=== PATIENT | male | born 1940 | race Caucasian/White ===

== ENCOUNTER → 2017-04-01 | Day surgery (SDC) | payer MEDICARE, BC ==
[~2017-04-01] VITALS: Ht 188 cm; Wt 106.8 kg
[~2017-04-01] MED LIST: ATOR40TA16 PO; DILT120T PO; GLIP10TA6 PO; LACTATED RINGER'S 1000 ML INJ 1,000 ML ONE; LIDOCAINE HCL 1% PF 30 ML VIAL ONE; LISI-515 PO; METF500T PO; MIDAZOLAM HCL 2 MG/2 ML VIAL ONE; NORC5TAB PO; ONDANSETRON HCL 4 MG/2 ML VIAL IV PUSH ONE; PRED10 PO; PROPOFOL 200 MG/20 ML AMP IV ONE; SODIUM BICARBONATE 8.4% INJ 50 ML ONE; SODIUM CHLOR 0.9% 250 ML INJ 250 ML ONE; SODIUM CHLORIDE 0.9% INJ 50 ML ONE; VANCOMYCIN HCL 1000 MG VIAL ONE; XARE20TA PO; ceFAZolin INJ 1,000 MG VIAL ONE
[2017-04-01 10:56] VITALS: BP 142/69; PULSE 82; RESP 20; TEMP 97.4; O2SAT 93
[2017-04-01 11:14] LABS: AUTOMATED NEUTROPHIL # 10.7 TH/MM3 (1.8-7.7); BASOPHIL # 1.1 TH/MM3 (0-0.2); BASOPHIL % 6.7 % (0.0-2.0); EOSINOPHIL # 0.3 TH/MM3 (0-0.4); EOSINOPHIL % 1.7 % (0.0-4.0); HEMATOCRIT 44.2 % (39.0-51.0); LYMPH % 18.1 % (9.0-44.0); MEAN CORPUSCULAR HEMOGLOBIN 29.8 PG (27.0-34.0); MEAN CORPUSCULAR HGB CONC 32.4 % (32.0-36.0); MONO % 7.8 % (0.0-8.0); NEUT % 65.7 % (16.0-70.0); PLATELET COUNT 535 TH/MM3 (150-450); RED BLOOD COUNT 4.81 MIL/MM3 (4.50-5.90); RED CELL DISTRIBUTION WIDTH 12.3 % (11.6-17.2); WHITE BLOOD COUNT 16.4 TH/MM3 (4.0-11.0)
[2017-04-01 11:20] LABS: HEMO FLAGS AUTO DIFF
[2017-04-01 11:24] LABS: POTASSIUM 4.4 MEQ/L (3.5-5.1)
[2017-04-01 11:28] LABS: BICARBONATE 28.6 MEQ/L (21.0-32.0)
[2017-04-01 11:39] LABS: EOSINOPHILS 2 % (0-4); NEUTROPHIL # MANUAL DIFF 12.1 TH/MM3 (1.8-7.7); POLYS (SEG NEUTROPHILS) 74 % (16-70); SCAN/DIFF FINAL DIFF MANUAL; WBC DIFF SAMPLE 100
[2017-04-01] MEDS: LIDOCAINE 1%/EPINEPHrine 1:100,000 SOLN 30 ML VIAL ONE ×2 (12:09→13:17)
[2017-04-01 15:23] VITALS: BP 114/72; PULSE 71; RESP 16; TEMP 98.2; O2SAT 99
--- NOTE | 2017-04-02 15:49 | EKG ---
Date Performed: 04/01/2017 Time Performed: 11:13:50 PTAGE: 77 years EKG: Atrial fibrillation with PVC(s). Lateral T wave changes are nonspecific Low QRS voltages in limb leads Abnormal ECG NO PREVIOUS TRACING DOCTOR: Bryn Ferguson Interpretating Date/Time 04/02/2017 15:41:02
--- NOTE | 2017-04-02 22:05 | MP ---
cc: CUAUHTEMOC LIN M.D., OLIMPIO F. M.D. HERDEL, G. FREDERICK M.D. Corrected Copy: 04/19/17 DATE OF SURGERY: 04/01/2017. PREOPERATIVE DIAGNOSIS: Rule out temporal arteritis with headaches, dizziness and elevated SED rate. POSTOPERATIVE DIAGNOSIS: Rule out temporal arteritis with headaches, dizziness and elevated SED rate. OPERATIVE PROCEDURE PERFORMED: SURGEON: Cuauhtemoc Lin MD. ANESTHESIA: LMA. ESTIMATED BLOOD LOSS: Less than 10 mL. FLUIDS: 1000 mL crystalloid. COMPLICATIONS: None. DRAINS: None. SPECIMEN: Bilateral temporal artery biopsies to pathology. DESCRIPTION OF THE PROCEDURE IN DETAIL: The patient was taken to the operating room and placed on the operating table in the supine position. After an adequate level of laryngeal mask anesthesia was instituted, the sideburns were shaved and both preauricular regions were prepped and draped. Time-out was taken confirming the correct patient, site and procedures to be performed. The scalp was infiltrated with local anesthetic and a longitudinal incision made in the preauricular region. Dissection was directed with the Doppler probe and the temporal artery was identified. Adequate length was dissected out from the surrounding structures and the vessel was ligated with 4-0 silk sutures. The artery was sharply divided and placed into formalin. The wound was hemostatic and was closed in two layers with interrupted 3-0 Vicryl suture and 5-0 PDS in a running subcuticular fashion. The wound was dressed with quarter-inch Steri-Strips. Attention was turned to the right side. The skin was infiltrated with local anesthetic and a longitudinal incision was made in the preauricular region as well. Dissection was then carried down sharply to the right temporal artery and proximal and distal control was obtained with silk sutures. The artery was divided sharply and passed off the table. The specimen was placed into formalin. This side was hemostatic as well and was closed in two layers with interrupted 3-0 Vicryl suture and 5-0 PDS in a running subcuticular fashion. This wound was dressed with quarter-inch Steri-Strips as well. The patient was taken back to the recovery room in stable condition. Sponge, needle and instrument counts were reported be correct. The patient tolerated the procedure well. MD JAN Harding/DANYELL /9:50 PM /11:38 AM
== END | disposition home or self-care (01) ==
LOC: PHSDC 10:28
PROVIDERS: ATTEND Surgery Trauma Surgery
DX: R51 Headache (principal); I70.8 Atherosclerosis of other arteries; R42 Dizziness and giddiness; I10 Essential (primary) hypertension; E11.9 Type 2 diabetes mellitus without complications; C67.9 Malignant neoplasm of bladder, unspecified; Z95.1 Presence of aortocoronary bypass graft; Z79.02 Long term (current) use of antithrombotics/antiplatelets; Z01.810 Encounter for preprocedural cardiovascular examination; Z01.818 Encounter for other preprocedural examination
CPT/HCPCS: 00352; 36415; 37609; 80048; 85007; 85027; 88305; 93005; J0690; J2250; J2405; J3010; J3370; J7050; J7120; 88304

== ENCOUNTER 2018-03-22 13:52 | Emergency (ER) | payer MEDICARE, BC ==
[~2018-03-22] VITALS: Ht 188 cm; Wt 99.0 kg
[~2018-03-22 13:52] MED LIST changes: -LACTATED RINGER'S 1000 ML INJ 1,000 ML ONE; -LIDOCAINE HCL 1% PF 30 ML VIAL ONE; -MIDAZOLAM HCL 2 MG/2 ML VIAL ONE; -ONDANSETRON HCL 4 MG/2 ML VIAL IV PUSH ONE; -PROPOFOL 200 MG/20 ML AMP IV ONE; -SODIUM BICARBONATE 8.4% INJ 50 ML ONE; -SODIUM CHLOR 0.9% 250 ML INJ 250 ML ONE; -SODIUM CHLORIDE 0.9% INJ 50 ML ONE; -VANCOMYCIN HCL 1000 MG VIAL ONE; -ceFAZolin INJ 1,000 MG VIAL ONE
[2018-03-22 13:59] VITALS: BP 127/51; PULSE 72; RESP 16; TEMP 97.6; O2SAT 97
[2018-03-22] MEDS ORDERED: FERR325T18 PO (14:18)
[2018-03-22] MEDS ORDERED: MAGO400T2 PO (14:18)
[2018-03-22] MEDS ORDERED: TETANUS/DIPHTHERIA TOXOID ADULT 0.5 ML VIAL IM ONE (14:30)
--- NOTE | 2018-03-22 14:40 | PD ---
HPI Chief Complaint: Fall Time Seen by Provider: 14:13 Travel History International Travel<30 days: No Contact w/Intl Traveler<30days: No Traveled to known affect area: No History of Present Illness HPI This 78-year-old male presents for treatment of injuries from a fall. He was walking and he tripped on a curb. He fell on his left side. He sustained multiple abrasions. He did not have a loss of consciousness. He was not able to get up. He has a history of atrial fibrillation and is on Xarelto. He also has a history of metastatic prostate cancer and is on tecentriq. He has been ambulatory since the fall or he was not able to get up. He is not complaining of headache. He does not have any neck pain. He does not complain of numbness or tingling PFSH Past Medical History Cancer: Yes (BLADDER) Cardiovascular Problems: Yes (HAD BYPASS) Chemotherapy: Yes Diabetes: Yes Endocrine: Yes Genitourinary: Yes (BLADDER) Hepatitis: No Hiatal Hernia: No Immune Disorder: No Musculoskeletal: No Neurologic: No Psychiatric: No Reproductive: No Respiratory: No Thyroid Disease: No Past Surgical History Abdominal Surgery: No AICD: No Body Medical Devices: STERNAL METAL CLIPS Cardiac Surgery: Yes (CABG 2003) Ear Surgery: No Endocrine Surgery: No Eye Surgery: No Genitourinary Surgery: Yes (BLADDER 2014) Gynecologic Surgery: No Joint Replacement: No Oral Surgery: Yes (TONSILLECTOMY, ADNOIDECTOMY) Pacemaker: No Thoracic Surgery: No Social History Tobacco Use: No Substance Use: No Allergies-Medications (Allergen,Severity, Reaction): Coded Allergies: No Known Allergies (Unverified Adverse Reaction, Unknown, 03/22/18) Reported Meds & Prescriptions Reported Meds & Active Scripts Active Reported Ferrous Sulfate 325 Mg (65 Mg Iron) Tablet 325 Mg PO DAILY Magox 400 (Magnesium Oxide) 400 Mg Tablet 1,600 Mg PO DAILY Diltiazem (Diltiazem HCl) 120 Mg Tab 120 Mg PO DAILY Xarelto (Rivaroxaban) 20 Mg Tab 20 Mg PO DAILY Metformin (Metformin HCl) 500 Mg Tab 1,000 Mg PO DAILY With meals Lisinopril 20 Mg Tab 20 Mg PO HS Atorvastatin (Atorvastatin Calcium) 40 Mg Tab 40 Mg PO BID Review of Systems General / Constitutional: No: Fever, Chills Eyes: No: Diploplia HENT: No: Headaches Cardiovascular: No: Chest Pain or Discomfort Respiratory: No: Cough Gastrointestinal: No: Nausea Genitourinary: No: Urgency Musculoskeletal: Positive: Myalgias, Pain Neurologic: Positive: Weakness Hematologic/Lymphatic: No: Easy Bruising Physical Exam Narrative GENERAL: Well-developed male SKIN: Focused skin assessment warm/dry. Abrasions on the left forearm. There is a skin tear on the left elbow. HEAD: . Normocephalic. There is a 2 cm laceration in the left eyebrow was a round and reactive. EYES: Pupils equal and round. No scleral icterus. No injection or drainage. ENT: No nasal bleeding or discharge. Mucous membranes pink and moist. NECK: Trachea midline. No JVD. Is no posterior tenderness of the neck. CARDIOVASCULAR: Regular rate and rhythm. No murmur appreciated. RESPIRATORY: No accessory muscle use. Clear to auscultation. Breath sounds equal bilaterally. GASTROINTESTINAL: Abdomen soft, non-tender, nondistended. Hepatic and splenic margins not palpable. MUSCULOSKELETAL: No obvious deformities. No clubbing. No cyanosis. No edema. NEUROLOGICAL: Awake and alert. No obvious cranial nerve deficits. Motor grossly within normal limits. Normal speech. PSYCHIATRIC: Appropriate mood and affect; insight and judgment normal. Data Data Last Documented VS Vital Signs Date Time Temp Pulse Resp B/P (MAP) Pulse Ox O2 Delivery O2 Flow Rate FiO2 03/22/18 14:30 16 03/22/18 13:59 97.6 72 127/51 (76) [address] Brain W/O Iv Contrast(Rout) (03/22/18 14:27) Tetanus/Diphtheria Tox Adult (Tetanus/Di (03/22/18 14:30) MDM Medical Decision Making Medical Screen Exam Complete: Yes Emergency Medical Condition: Yes Medical Record Reviewed: Yes Differential Diagnosis Differential diagnosis includes laceration eyebrow, closed head injury, intracerebral hemorrhage Narrative Course Patient is on Xarelto and hit his head so I have ordered a CT scan to assess for possible hemorrhage. His tetanus has been updated. Laceration will be sutured Diagnosis Primary Impression: Laceration of eyebrow Disposition: DISCHARGE HOME Condition: Stable Arsh Horn MD Mar 22, 2018 14:40
--- NOTE | 2018-03-22 14:52 | PD ---
Physical Exam Date Seen by Provider: Mar 22, 2018 Narrative I was asked to repair a laceration to the left eyebrow. LACERATION LOCATION: Left lateral eyebrow LENGTH: 1 cm NUMBER OF STITCHES/MANDI: 3 REPAIR: The area of the laceration was prepped with Betadine and sterilely draped. The laceration was infiltrated with 1% lidocaine without epinephrine. The wound was copiously irrigated and explored without evidence of foreign body, tendon injury or neurovascular injury. The wound was closed using 5-0 Prolene. This was a single layer repair. A sterile dressing was applied. The patient was advised to keep the dressing clean and dry. Patient tolerated the procedure well. Data Data Last Documented VS Vital Signs Date Time Temp Pulse Resp B/P (MAP) Pulse Ox O2 Delivery O2 Flow Rate FiO2 03/22/18 14:30 16 03/22/18 13:59 97.6 72 127/51 (76) [address] Brain W/O Iv Contrast(Rout) (03/22/18 14:27) Tetanus/Diphtheria Tox Adult (Tetanus/Di (03/22/18 14:30) Ed Discharge Order (03/22/18 16:24) MDM Supervised Visit with PEYMAN: Yes Additional Instruction: Suture removal in 5-7 days. Keep area clean and dry for 24 hours. After 24 hours he may bathe normally however dry the area thoroughly. Shara Amos Mar 22, 2018 14:52
--- NOTE | 2018-03-22 16:02 | RADRPT ---
EXAM DATE/TIME: 03/22/2018 15:31 [facility] COMPARISON: No previous studies available for comparison. INDICATIONS : Tripped and fell today. RADIATION DOSE: 57.89 CTDIvol (mGy) MEDICAL HISTORY : Cardiovascular disease. Carcinoma, bladder. SURGICAL HISTORY : CABG ENCOUNTER: Initial ACUITY: 1 day PAIN SCALE: 7/10 LOCATION: Left temporal TECHNIQUE: Multiple contiguous axial images were obtained of the head. Using automated exposure control and adj ustment of the mA and/or kV according to patient size, radiation dose was kept as low as reasonably a chievable to obtain optimal diagnostic quality images. DICOM format image data is available electro nically for review and comparison. FINDINGS: CEREBRUM: Diffuse prominence of ventricles, sulci, and cisterns indicating diffuse atrophy. No evidence of acut e intracranial hemorrhage or extra-axial fluid collection. No mass effect or midline shift. No eviden ce of acute infarct. POSTERIOR FOSSA: The cerebellum and brainstem are intact. The 4th ventricle is midline. The cerebellopontine angle i s unremarkable. EXTRACRANIAL: The visualized portion of the orbits is intact. Diffuse opacification of the mastoid air cells bilate rally. SKULL: The calvaria is intact. No evidence of skull fracture. CONCLUSION: 1. No acute intracranial findings. 2. Diffuse atrophy. 3. Age indeterminate diffuse mastoid air cell opacification bilaterally. Clinton Delgado MD on March 22, 2018 at 15:55 Board Certified Radiologist. This report was verified electronically.
--- NOTE | 2018-03-22 16:28 | PD ---
Data Data Last Documented VS Vital Signs Date Time Temp Pulse Resp B/P (MAP) Pulse Ox O2 Delivery O2 Flow Rate FiO2 03/22/18 14:30 16 03/22/18 13:59 97.6 72 127/51 (76) [address] Brain W/O Iv Contrast(Rout) (03/22/18 14:27) Tetanus/Diphtheria Tox Adult (Tetanus/Di (03/22/18 14:30) Ed Discharge Order (03/22/18 16:24) MDM Medical Record Reviewed: Yes Supervised Visit with PEYMAN: No Narrative Course Please refer to Dr Horn's note. Laceration repaired. The patient is ready for discharge. Diagnosis Primary Impression: Fall Qualified Codes: W19.XXXA - Unspecified fall, initial encounter Additional Impression: Forehead laceration Qualified Codes: S01.81XA - Laceration without foreign body of other part of head, initial encounter Med/Other Pt SpecificInfo: No Change to Meds Disposition: 01 DISCHARGE HOME Condition: Stable Ruel Ivory MD Mar 22, 2018 16:28
[2018-03-22 16:55] VITALS: BP 139/63
== END 2018-03-22 16:56 | disposition home or self-care (01) ==
LOC: PHED 13:52
DX: S01.112A Laceration without foreign body of left eyelid and periocular area, initial encounter (principal); W10.1XXA Fall (on)(from) sidewalk curb, initial encounter; Y93.01 Activity, walking, marching and hiking; Z23 Encounter for immunization
CPT/HCPCS: 12011; 70450; 90471; 90714